=== PATIENT | male | born 1960 | race Caucasian/White ===

== ENCOUNTER 2022-01-17 02:23 | Outpatient (CLI) | payer OTHER, SELFPAY | END 2022-01-17 02:24 | disposition home or self-care (01) | PROVIDERS: PCP Family Medicine; Visit Provider Family Medicine | DX: R41.82 Altered mental status, unspecified (principal) ==

== ENCOUNTER 2022-01-17 03:26 | Outpatient (CLI) | payer OTHER, SELFPAY | END 2022-01-17 03:27 | disposition home or self-care (01) | LOC: AMB 01-31 02:59 | PROVIDERS: PCP Family Medicine; Visit Provider Family Medicine | DX: R41.82 Altered mental status, unspecified (principal); R47.81 Slurred speech; R53.1 Weakness | CPT/HCPCS: A0425; A0427 ==

== ENCOUNTER 2022-01-17 03:40 | Observation (INO) | payer OTHER, SELFPAY ==
[2022-01-17] VITALS (11 sets, daily range): BP systolic 130–148; BP diastolic 37–92; PULSE 53–68; RESP 16–20; TEMP 36.4–36.8; O2SAT 94–98
--- NOTE | 2022-01-17 03:47 | CRLHL7_ITS ---
For Patients: As a result of the Century Cures Act, medical imaging exams and procedure reports are released immediately into your electronic medical record. You may view this report before your referring provider. If you have questions, please contact your health care provider. INDICATION: Left sided weakness TECHNIQUE: CT Head without i.v. contrast. Coronal and sagittal reformats were obtained. COMPARISON: None FINDINGS: CSF space: The ventricles are normal for age. Brain: No evidence of mass, acute infarction or hemorrhage is seen. No mass-effect or midline shift is seen. The brain parenchyma is otherwise normal in appearance with preservation of the morillo-white matter junction. Calvarium: Opacification of the ethmoid air cells are noted bilaterally. A retention cyst or polyp is partially visualized in the left maxillary sinus. The mastoid air cells are clear. The visualized orbits are grossly unremarkable. The calvarium is unremarkable in appearance with no fractures identified. IMPRESSION: 1. No evidence of acute infarction, intracranial hemorrhage, or mass-effect seen. Dictated by Navid Gustafson MD @ 01/17/2022 4:02:56 AM Please note that all CT scans at this facility use dose modulation, iterative reconstruction, and/or weight-based dosing when appropriate to reduce radiation dose to as low as reasonably achievable. Dictated by: Navid Gustafson MD @ 01/17/2022 04:03:02 (Electronically Signed)
--- NOTE | 2022-01-17 03:47 | CT_ITS ---
Final Report Patient: MAXI CRAIG Facility:?[facility] Patient ID:?[id number] Site Patient ID:?[id number]. Site :?[id number] Study:?CT Head Angio -01/17/2022 3:57:04 AM Ordering Physician:Arturo Chung Final Report: INDICATION: Acute stroke, left-sided weakness. TECHNIQUE: CTA head with contrast bolus tracking and 3D MIP reconstruction. FINDINGS: Atherosclerotic plaque is present around the carotid siphons with mild to moderate stenosis of the supraclinoid left internal carotid artery. There is no large vessel occlusion. The right vertebral artery predominantly supplies the posterior-inferior cerebellar artery. The left vertebral artery is dominant. No aneurysm is identified. IMPRESSION: No emergent large vessel occlusion. Please note that all CT scans at this facility use dose modulation, iterative reconstruction, and/or weight-based dosing when appropriate to reduce radiation dose to as low as reasonably achievable. Dictated by Prateek Damian MD @ 01/17/2022 9:30:14 AM (Electronic Signature)
--- NOTE | 2022-01-17 03:47 | CT_ITS ---
Final Report Patient: MAXI CRAIG Facility:?[facility] Patient ID:?[id number] Site Patient ID:?[id number]. Site :?[id number] Study:?CT ST Neck Angio -01/17/2022 3:58:28 AM Ordering Physician:?Clary Chung Final Report: INDICATION: Acute stroke, left-sided weakness. TECHNIQUE: CTA neck with contrast bolus tracking and 3D MIP reconstruction. FINDINGS: There is minor carotid atherosclerotic disease. There is no significant carotid or vertebral artery stenosis or dissection. The soft tissues of the neck are within normal limits. The cervical spine is in normal alignment. IMPRESSION: No significant carotid or vertebral artery stenosis or dissection. Please note that all CT scans at this facility use dose modulation, iterative reconstruction, and/or weight-based dosing when appropriate to reduce radiation dose to as low as reasonably achievable. Dictated by Prateek Damian MD @ 01/17/2022 9:36:15 AM (Electronic Signature)
--- NOTE | 2022-01-17 03:49 | CRLHL7_ITS ---
For Patients: As a result of the Cures Act, medical imaging exams and procedure reports are released immediately into your electronic medical record. You may view this report before your referring provider. If you have questions, please contact your health care provider. INDICATION: Left sided weakness TECHNIQUE: Chest radiograph 1 view COMPARISON: None FINDINGS: Mediastinum: The mediastinum is normal in appearance. The cardiac silhouette is mildly enlarged but may be accentuated by the portable technique. Lung: Both lungs are unremarkable in appearance. The right lateral costophrenic sulcus is excluded. No sign of pleural effusion seen. No pneumothorax is identified. Bone and Soft tissue: Unremarkable for age. IMPRESSION: 1. The cardiac silhouette is mildly enlarged but may be accentuated by the portable technique. Dictated by Navid Gustafson MD @ 01/17/2022 4:16:55 AM Dictated by: Navid Gustafson MD @ 01/17/2022 04:17:02 (Electronically Signed)
[2022-01-17] MEDS: 0.9 % SODIUM CHLORIDE 1000 ml 1,000 ML IV (04:05)
--- NOTE | 2022-01-17 04:11 | ED.NEUROSD ---
HPI - Neuro Symptoms/Deficit General Date Seen: 01/17/22 Chief Complaint: Weakness Stated Complaint: Stroke Time Seen by Provider: 01/17/22 03:47 Source: patient, EMS, RN notes reviewed and old records reviewed Mode of arrival: EMS Limitations: no limitations History of Present Illness HPI Narrative: Ha is a 61-year-old male with a history of daily alcohol use that he describes as social who is brought to the emergency room by EMS for evaluation regarding left-sided weakness and numbness that has now resolved. EMS was called to Ha home at 0130 when he had had the on set of weakness and numbness in his left arm and leg. He states it started in the leg and then moved to the arm and was associated with difficulty with speaking. By the time EMS arrived he had had resolution of his symptoms and declined to go to the hospital. At 0300 hours this occurred again. This time it lasted for 5 minutes. EMS brought patient to the hospital. Patient notes that this is not happened to him in the past. He denies any recent trauma. He does state that they have had guests all day and have had 5-6 cocktails. He denies a history of withdrawal. Patient notes again weakness started in his left lower extremity and seemed to be rather sudden. This then involved his left upper extremity the left side of his face and he noticed that he felt like he was talking when he has Novocain in his mouth. He denied a headache, chest pain, shortness of breath. He has not had history of atrial fibrillation or irregular heartbeat in the past. He denies any drug use. He is a smoker. Time: 03:00 Last Observed Normal: 03:00 Timing confirmed by: other (Friend) Location: speech, left face, left arm and left leg History of same: No Severity: moderate Quality: weak and numb Relieving factors: time Exacerbating factors: none Context: sudden onset On Anticoagulants: No Associated symptoms: denies other symptoms Treatments Prior to Arrival: none Related Data Home Medications Medication Instructions Recorded Confirmed No Known Home Medications 01/17/22 01/17/22 Allergies Allergy/AdvReac Type Severity Reaction Status Date / Time No Known Drug Allergies Allergy Verified 01/17/22 04:25 Review of Systems Status of ROS: Reports: 10 or more systems reviewed and unremarkable except as noted in History and below Const: Denies: fever, chills or fatigue Eyes: Denies: change in vision or blurry vision ENMT: Denies: throat pain, neck pain, difficulty swallowing or vertigo Cardio: Denies: chest pain, palpitations, edema, swelling of feet/ankles or shortness of breath with exertion Resp: Denies: shortness of breath or cough GI: Denies: abdominal pain, nausea, vomiting or difficulty swallowing : Denies: painful urination Musculo: Denies: back pain or neck pain Integ/Breast: Denies: rash Neuro: Reports: numbness in extremities, weakness in extremities and slurred speech; Denies: headache, dizziness or vertigo Psych: Denies: anxiety Endo: Denies: fatigue PFSH PFS Social History Smoking Status: Current every day smoker What tobacco products do you use: cigarettes Smoking packs per day: 1 Smoking cigarettes per day: 20.0 Second hand tobacco smoke exposure: No How often do you have a drink containing alcohol: 4 or more times a week How many standard drinks containing alcohol do you have on a typical day: 3 or 4 How often do you have six or more drinks on one occasion: Monthly AUDIT-C Alcohol total score: 7 Non-prescribed substance use: denies use service: No Exam Const: Vital Signs, click to edit/add: Vital Signs - 24 hr 01/17/22 04:25 01/17/22 04:57 Temperature 97.5 F L Pulse Rate [Left P ulse Oximeter] 67 68 Respiratory Rate 16 16 Blood Pressure [Le ft Upper Arm] 131/78 148/37 H Pulse Oximetry 95 96 Documenting provider has reviewed patient's vital signs: yes Common normals: no apparent distress, average body habitus, oriented x3 and no limitations General appearance: cooperative and comfortable HENMT: Common normals: normocephalic, head/scalp atraumatic, external ears normal and external nose normal Head and scalp: normocephalic and atraumatic Face and sinus: normal facial exam and face symmetric Nose: external nose normal External ear: external ears normal Mouth: oral and palatal mucosa normal and tongue normal Throat: posterior oropharynx normal Eye: Common normals: PERRL and EOMs intact bilaterally General eye: normal appearance of both eyes Pupil: PERRL Neck & C-Spine: Common normals: full ROM, no lymphadenopathy and supple Resp: Common normals: normal respiratory effort and clear to auscultation bilaterally Effort & inspection: able to speak in complete sentences and symmetric chest movement Auscultation: clear to auscultation bilaterally Cardio: Common normals: regular rate and regular rhythm Rate: regular rate Rhythm: regular rhythm GI: Common normals: soft to palpation and non-tender Inspection: abdominal distension Palpation: soft : Common normals: no CVA tenderness Bladder/kidney exam: no CVA tenderness Back & Pelvis: Common normals: no CVA tenderness Extremity: Common normals: normal to inspection and full ROM Neuro: Common normals: oriented x3, CN's II-XII intact bilaterally, moves all extremities, no focal motor deficits and no sensory deficits noted Coordination/balance: [id number] test normal and Romberg test negative Speech: speech normal Gait (neuro): unable to assess gait Motor exam: strength 5/5 throughout and no pronator drift Coordination: [id number] test normal Pupil exam: Normal pupillary reactivity/response: bilateral Psych: Common normals: mental status grossly normal, thought process normal and speech normal Activity/motor behavior: appropriate eye contact Speech: normal speech Thought process: normal thought process Attention/concentration: attention grossly intact Memory/cognition: memory grossly intact Insight: insight good Judgement: judgment good Skin: Common normals: no rashes or lesions noted General skin exam: no rashes or lesions noted Course Course Hospital Course: Patient was met in the back all way upon EMS arrival for examination. Patient underwent CT CTA although his symptoms had resolved at that point. Will also obtain laboratory values to include a CBC, basic panel, LFTs, urinalysis, EtOH, EKG, troponin. Reevaluation(s) Reevaluation #1: Patient continues to be asymptomatic. He tells me he did take an aspirin at home after the initial experience of left-sided weakness. He had no loss of bowel or bladder control during that time as well as no difficulty breathing or chest pain or headache. Currently awaiting CTA results. Will contact Neurology for consultation. Reevaluation #2: After negative head CT, 2- troponins and normal EKGs we did have patient get up walk around the department and he had no recurrence of symptoms. Consultations Consultation #1: Dr. Walker, [place] neurologist, is consulted. Vital Signs Vital signs: Initial Vital Signs Temperature 97.5 F L 01/17/22 04:25 Temperature Source Temporal Artery Scan 01/17/22 04:25 Pulse Rate 67 01/17/22 04:25 Pulse Rhythm 01/17/22 04:25 Respiratory Rate 16 01/17/22 04:25 Blood Pressure 131/78 01/17/22 04:25 Blood Pressure Mean 95 01/17/22 04:25 Pulse Oximetry 95 01/17/22 04:25 Oxygen Delivery Method 01/17/22 04:25 Vital Signs Temperature 97.5 F L 01/17/22 04:25 Pulse Rate 67 01/17/22 04:25 Respiratory Rate 16 01/17/22 04:25 Blood Pressure 131/78 01/17/22 04:25 Pulse Oximetry 95 01/17/22 04:25 Temperature 97.5 F L 01/17/22 04:25 Pulse Rate 68 01/17/22 04:57 Respiratory Rate 16 01/17/22 04:57 Blood Pressure 148/37 H 01/17/22 04:57 Pulse Oximetry 96 01/17/22 04:57 MDM - Neuro Symptoms/Deficit MDM Narrative Medical decision making narrative: 1. Neurological deficit-resolved. Patient has normal exam, negative head CT and CTA. Consult with Dr. Christiano walker who suggests MRI without contrast. Dr. Walker is to be contacted after MRI results returned for further consultation. Patient took his own aspirin 325 mg p.o. at home. 2. Daily alcohol use-alcohol tonight is 0.07. LFTs reassuring. 3. Disposition-this patient will be signed out to my partner Dr. Vo for MRI results as well as consult with Dr. Walker once again. Medical Records Attestation: I reviewed the patient's medical records. Lab Data Attestation: I reviewed the patient's lab results. Labs: Lab Results 01/17/22 01/17/22 01/17/22 Range/Units 03:49 04:05 04:05 WBC 5.93 (4.50-11.00) K/uL RBC 4.77 (4.30-5.90) m/uL Hgb 15.8 (13.5-17.5) gm/dL Hct 45.4 (37.0-53.0) % MCV 95 (80-100) fL MCH 33 (26-34) pg MCHC 35 (32-36) gm/dL RDW Coeff of Brittany 12.4 (11.5-15.5) % Plt Count 227 (140-440) K/uL Neut % (Auto) 38.8 L (42.0-72.0) % Lymph % (Auto) 43.5 (20-44) % [place] % (Auto) 8.4 (0.0-11.0) % Eos % (Auto) 7.6 H (0.0-7.0) % Baso % (Auto) 1.5 (0.0-3.0) % Neut # (Auto) 2.30 (1.7-7.0) K/uL Lymph # (Auto) 2.58 (0.90-2.90) K/uL [place] # (Auto) 0.50 (0.00-0.90) K/UL Eos # (Auto) 0.50 (0.00-0.50) K/uL Baso # (Auto) 0.09 (0.00-0.30) K/uL Abs Immat Gran (auto) 0.01 (0.00-0.30) K/uL Sodium 134 L (135-149) mmol/L Potassium 3.5 L (3.6-5.1) mmol/L Chloride 104 (96-114) mmol/L Carbon Dioxide 23 (20-32) mmol/L BUN 11 (7-30) mg/dL Creatinine 0.9 (0.5-1.5) mg/dL Estimated GFR 97 ml/min Glucose 134 H (60-115) mg/dL Calcium 8.5 (8.4-10.6) mg/dL Total Bilirubin 0.3 (0.1-1.5) mg/dL AST 24 (12-35) U/L ALT 25 (4-50) U/L Alkaline Phosphatase 70 (40-150) U/L C-Reactive Protein < 0.5 L (0.5-1.0) mg/dL Total Protein 6.2 (6.0-8.3) g/dL Albumin 3.8 (3.3-5.0) g/dL Urine Color (Yellow) Urine Appearance (Clear) Urine pH (5.0-8.5) Ur Specific [place] (1.000-1.030) Urine Protein (Negative) Urine Glucose (UA) (Negative) Urine Ketones (Negative) Urine Blood (Negative) Urine Nitrite (Negative) Urine Bilirubin (Negative) Urine Urobilinogen (0.2-1.0) Ur Leukocyte Esterase (Negative) Urine Opiates Screen (Negative) Ur Oxycodone Screen (Negative) Urine Methadone Screen (Negative) Ur Propoxyphene Screen (Negative) Ur Barbiturates Screen (Negative) U Tricyclic Antidepress (Negative) Ur Phencyclidine Scrn (Negative) Ur Amphetamines Screen (Negative) U Methamphetamines Scrn (Negative) U Benzodiazepines Scrn (Negative) Urine Cocaine Screen (Negative) U Marijuana (THC) Screen (Negative) Ur Drug Screen Comment Ethyl Alcohol 0.07 H (0.01-0.03) % SARS-CoV-2 (PCR) (Negative) Influenza Type A (PCR) (Negative) Influenza Type B (PCR) (Negative) POC Troponin I 0.01 (0.01-0.04) ng/ml 01/17/22 01/17/22 01/17/22 Range/Units 04:05 04:50 04:50 WBC (4.50-11.00) K/uL RBC (4.30-5.90) m/uL Hgb (13.5-17.5) gm/dL Hct (37.0-53.0) % MCV (80-100) fL MCH (26-34) pg MCHC (32-36) gm/dL RDW Coeff of Brittany (11.5-15.5) % Plt Count (140-440) K/uL Neut % (Auto) (42.0-72.0) % Lymph % (Auto) (20-44) % [place] % (Auto) (0.0-11.0) % Eos % (Auto) (0.0-7.0) % Baso % (Auto) (0.0-3.0) % Neut # (Auto) (1.7-7.0) K/uL Lymph # (Auto) (0.90-2.90) K/uL [place] # (Auto) (0.00-0.90) K/UL Eos # (Auto) (0.00-0.50) K/uL Baso # (Auto) (0.00-0.30) K/uL Abs Immat Gran (auto) (0.00-0.30) K/uL Sodium (135-149) mmol/L Potassium (3.6-5.1) mmol/L Chloride (96-114) mmol/L Carbon Dioxide (20-32) mmol/L BUN (7-30) mg/dL Creatinine (0.5-1.5) mg/dL Estimated GFR ml/min Glucose (60-115) mg/dL Calcium (8.4-10.6) mg/dL Total Bilirubin (0.1-1.5) mg/dL AST (12-35) U/L ALT (4-50) U/L Alkaline Phosphatase (40-150) U/L C-Reactive Protein (0.5-1.0) mg/dL Total Protein (6.0-8.3) g/dL Albumin (3.3-5.0) g/dL Urine Color Yellow (Yellow) Urine Appearance Clear (Clear) Urine pH 5.5 (5.0-8.5) Ur Specific [place] <= 1.005 (1.000-1.030) Urine Protein Negative (Negative) Urine Glucose (UA) Negative (Negative) Urine Ketones Negative (Negative) Urine Blood Negative (Negative) Urine Nitrite Negative (Negative) Urine Bilirubin Negative (Negative) Urine Urobilinogen 0.2 (0.2-1.0) Ur Leukocyte Esterase Negative (Negative) Urine Opiates Screen Negative (Negative) Ur Oxycodone Screen Negative (Negative) Urine Methadone Screen Negative (Negative) Ur Propoxyphene Screen Negative (Negative) Ur Barbiturates Screen Negative (Negative) U Tricyclic Antidepress Negative (Negative) Ur Phencyclidine Scrn Negative (Negative) Ur Amphetamines Screen Negative (Negative) U Methamphetamines Scrn Negative (Negative) U Benzodiazepines Scrn Negative (Negative) Urine Cocaine Screen Negative (Negative) U Marijuana (THC) Screen Negative (Negative) Ur Drug Screen Comment See Note Ethyl Alcohol (0.01-0.03) % SARS-CoV-2 (PCR) Negative SARS-CoV-2 (Negative) Influenza Type A (PCR) Negative PCR FLU A (Negative) Influenza Type B (PCR) Negative PCR FLU B (Negative) POC Troponin I (0.01-0.04) ng/ml 01/17/22 Range/Units 06:00 WBC (4.50-11.00) K/uL RBC (4.30-5.90) m/uL Hgb (13.5-17.5) gm/dL Hct (37.0-53.0) % MCV (80-100) fL MCH (26-34) pg MCHC (32-36) gm/dL RDW Coeff of Brittany (11.5-15.5) % Plt Count (140-440) K/uL Neut % (Auto) (42.0-72.0) % Lymph % (Auto) (20-44) % [place] % (Auto) (0.0-11.0) % Eos % (Auto) (0.0-7.0) % Baso % (Auto) (0.0-3.0) % Neut # (Auto) (1.7-7.0) K/uL Lymph # (Auto) (0.90-2.90) K/uL [place] # (Auto) (0.00-0.90) K/UL Eos # (Auto) (0.00-0.50) K/uL Baso # (Auto) (0.00-0.30) K/uL Abs Immat Gran (auto) (0.00-0.30) K/uL Sodium (135-149) mmol/L Potassium (3.6-5.1) mmol/L Chloride (96-114) mmol/L Carbon Dioxide (20-32) mmol/L BUN (7-30) mg/dL Creatinine (0.5-1.5) mg/dL Estimated GFR ml/min Glucose (60-115) mg/dL Calcium (8.4-10.6) mg/dL Total Bilirubin (0.1-1.5) mg/dL AST (12-35) U/L ALT (4-50) U/L Alkaline Phosphatase (40-150) U/L C-Reactive Protein (0.5-1.0) mg/dL Total Protein (6.0-8.3) g/dL Albumin (3.3-5.0) g/dL Urine Color (Yellow) Urine Appearance (Clear) Urine pH (5.0-8.5) Ur Specific [place] (1.000-1.030) Urine Protein (Negative) Urine Glucose (UA) (Negative) Urine Ketones (Negative) Urine Blood (Negative) Urine Nitrite (Negative) Urine Bilirubin (Negative) Urine Urobilinogen (0.2-1.0) Ur Leukocyte Esterase (Negative) Urine Opiates Screen (Negative) Ur Oxycodone Screen (Negative) Urine Methadone Screen (Negative) Ur Propoxyphene Screen (Negative) Ur Barbiturates Screen (Negative) U Tricyclic Antidepress (Negative) Ur Phencyclidine Scrn (Negative) Ur Amphetamines Screen (Negative) U Methamphetamines Scrn (Negative) U Benzodiazepines Scrn (Negative) Urine Cocaine Screen (Negative) U Marijuana (THC) Screen (Negative) Ur Drug Screen Comment Ethyl Alcohol (0.01-0.03) % SARS-CoV-2 (PCR) (Negative) Influenza Type A (PCR) (Negative) Influenza Type B (PCR) (Negative) POC Troponin I 0.01 (0.01-0.04) ng/ml Imaging Data CT scan - head: Attestation: I have reviewed the pertinent imaging results. My impression: No acute findings Radiologist's impression: No acute findings head and neck angio: Attestation: I have reviewed the pertinent imaging results. Radiologist's impression: The [id number] is unremarkable with no significant stenosis, occlusion, or aneurysm identified. A fenestration is noted near the origin of the right P1 segment. The neck vessels showed no evidence dissection, significant stenosis. A left dominant vertebral artery is present. Chest x-ray: Attestation: I have reviewed the pertinent imaging results. My impression: No acute infiltrate Radiologist's impression: No acute findings ECG Data Attestation: I personally reviewed and interpreted this ECG as follows: ECG interpretation date: 01/17/22 ECG interpretation time: 04:30 Interpretation: EKG by my read shows sinus rhythm at a rate of 68. No acute ST or T-wave changes are noted. Discharge Plan Discharge Prescriptions: No Action No Known Home Medications 0RF Follow Up/Referrals: Abdi Finley MD [Primary Care Provider] -
[2022-01-17 04:23] LABS: Troponin, Point-of-Care* 0.01 ng/ml (0.01-0.04)
[2022-01-17 04:26] LABS: Basophils Absolute Auto 0.09 K/uL (0.00-0.30); Basophils Percent Auto 1.5 % (0.0-3.0); Eosinophils Percent Auto 7.6 % (0.0-7.0); Hematocrit 45.4 % (37.0-53.0); Hemoglobin* 15.8 gm/dL (13.5-17.5); Immature Granulocytes Abs Auto 0.01 K/uL (0.00-0.30); Lymphocytes Absolute Auto 2.58 K/uL (0.90-2.90); Lymphocytes Percent Auto 43.5 % (20-44); Mean Corpuscular HGB Conc 35 gm/dL (32-36); Mean Corpuscular Hemoglobin 33 pg (26-34); Mean Corpuscular Volume 95 fL (80-100); Monocytes Percent Auto 8.4 % (0.0-11.0); Neutrophils Percent Auto 38.8 % (42.0-72.0); Platelet Count* 227 K/uL (140-440); RDW Coefficient of Variation % 12.4 % (11.5-15.5); Red Blood Count 4.77 m/uL (4.30-5.90); White Blood Count* 5.93 K/uL (4.50-11.00)
[2022-01-17 04:31] LABS: Slide Review Reflex No
[2022-01-17 04:39] LABS: Albumin* 3.8 g/dL (3.3-5.0); Chloride* 104 mmol/L (96-114)
[2022-01-17 04:40] LABS: Potassium* 3.5 mmol/L (3.6-5.1); Sodium* 134 mmol/L (135-149)
[2022-01-17 04:42] LABS: Alanine Aminotransferase* 25 U/L (4-50); Alkaline Phosphatase* 70 U/L (40-150); Aspartate Amino Transferase* 24 U/L (12-35); Bilirubin Total* 0.3 mg/dL (0.1-1.5); Carbon Dioxide* 23 mmol/L (20-32); Creatinine* 0.9 mg/dL (0.5-1.5); Estimated Glomerular Filt Rate 97 ml/min; Total Protein* 6.2 g/dL (6.0-8.3)
[2022-01-17 04:43] LABS: Blood Urea Nitrogen* 11 mg/dL (7-30); Calcium* 8.5 mg/dL (8.4-10.6); Ethanol* 0.07 % (0.01-0.03); Glucose* 134 mg/dL (60-115)
[2022-01-17 04:47] LABS: C Reactive Protein* < 0.5 mg/dL (0.5-1.0)
[2022-01-17 05:02] LABS: Appearance Urine Clear (Clear); Bilirubin Urine Negative (Negative); Blood Urine Negative (Negative); Color Urine Yellow (Yellow); Glucose Urine Negative (Negative); Ketones Urine Negative (Negative); Leukocyte Esterase Urine Negative (Negative); Nitrite Urine Negative (Negative); Protein Urine Negative (Negative); Specific Gravity Urine <= 1.005 (1.000-1.030); Urobilinogen Urine 0.2 (0.2-1.0); pH Urine 5.5 (5.0-8.5)
[2022-01-17 05:03] LABS: PCR FLU A Negative PCR FLU A (Negative); PCR FLU B Negative PCR FLU B (Negative)
[2022-01-17 05:07] LABS: SARS PCR* Negative SARS-CoV-2 (Negative)
[2022-01-17 05:10] LABS: Amphetamine Screen Urine Negative (Negative); Barbiturate Screen Urine Negative (Negative); Benzodiazepines Screen Urine Negative (Negative); Cannabinoid Screen Urine Negative (Negative); Cocaine Screen Urine Negative (Negative); Methadone Screen Urine Negative (Negative); Methamphetamines Screen Urine Negative (Negative); Opiate Screen Urine Negative (Negative); Oxycodone Screen Urine Negative (Negative); Phencyclidine Screen Urine Negative (Negative); Tricyclic Antidepressant Urine Negative (Negative)
[2022-01-17 06:14] LABS: Troponin, Point-of-Care* 0.01 ng/ml (0.01-0.04)
--- NOTE | 2022-01-17 06:23 | ED.NURSE ---
pt ambulated around ED, no complaints or reports of CP, SOB, numbness, pt with steady gait.
--- NOTE | 2022-01-17 06:55 | CRLHL7_ITS ---
For Patients: As a result of the Century Cures Act, medical imaging exams and procedure reports are released immediately into your electronic medical record. You may view this report before your referring provider. If you have questions, please contact your health care provider. INDICATION: Left-sided weakness. Speech difficulty. TECHNIQUE: Multiplanar multisequence noncontrast MR images acquired through the brain. COMPARISON: CT brain 01/17/2022. FINDINGS: Prominence of ventricles and sulci compatible with mild diffuse cerebral volume loss. No mass effect or midline shift. No parenchymal signal abnormalities. No diffusion restriction to suggest acute infarction. No intracranial hemorrhage or pathologic extra-axial fluid collection. The major arterial flow voids of the skullbase are preserved. The globes are symmetric. Small left maxillary sinus retention cyst. Mild to moderate paranasal sinus mucosal thickening. The mastoid air cells are clear. IMPRESSION: 1. No acute infarction, mass effect, or intracranial hemorrhage. 2. Mild diffuse cerebral volume loss. Dictated by Donal Zuniga MD @ 01/17/2022 9:22:29 AM (Electronically Signed)
--- NOTE | 2022-01-17 07:41 | PC.NURSE ---
pt sleeping, vss, at bedside, given MRI form to complete
--- NOTE | 2022-01-17 08:27 | PC.NURSE ---
pt to MRI
--- NOTE | 2022-01-17 09:06 | PC.NURSE ---
Addendum entered by Iman Gardner RN 01/17/22 09:11: correction: pt back from MRI Original Note: pt back from CT
--- NOTE | 2022-01-17 09:44 | PC.NURSE ---
pt had another episode of left sided numbness, states, I had my water in my hand and it just dropped to the bed, pt symptoms now completely resolved, Dr Vo to room
--- NOTE | 2022-01-17 10:39 | W.PC.EDHO ---
Primary Language: Preferred Language: Orientation Status: [x] Alert & Oriented [] Slight Confusion [] Known Dx Dementia Transfers By: [x] Assist of 1 [] Assist of 2 [] Lift Active Medications Discontinued Medications Generic Name Dose Route Start Last Admin Trade Name Freq PRN Reason Stop Dose Admin Sodium Chloride 1,000 mls @ 1,000 mls/hr 01/17/22 03:48 01/17/22 10:27 0.9 % Sodium Chloride 1000 Ml IV 01/17/22 04:47 Infused .Q1H REEMA Infusion Description of Symptoms ED Triage Present Problem 0130 pt began to have left sided numbness, arm. Description Numbness resolved, returned around 0300. Pt called 911 for help and was transported to ED. PT taken directly to CT, met pt in CT room ED Triage Date of Onset of 01/17/22 Symptoms [place] Coma Scale Roberto coma scale total score 15 Oxygen Administration Pulse Oximetry 96 Pulse Oximetry 95 Oxygen Delivery Method Room Air Oxygen Delivery Method Room Air Cardiac Monitoring EKG Method 12 Lead EKG Method 12 Lead EKG Method 12 Lead
[2022-01-17] MEDS: ASPIRIN 81 MG TAB.CHEW 324 MG PO (11:24)
--- NOTE | 2022-01-17 11:24 | PC.NURSE ---
report given to Rupinder Will on Med Surg, pt to room 256, tele on, ASA given, pt daughter and aware
--- NOTE | 2022-01-17 12:56 | PM.IMHP1 ---
Hospitalist- H&P: HPI History of Present Illness Date Seen: 01/17/22 Chief complaint: Stroke Narrative: ADMISSION HISTORY AND PHYSICAL - HOSPITALIST Chief Complaint: New episodes of left-sided dysarthria, upper and lower extremity weakness HPI: This is a 61-year-old white male with a history of DWAIN, obesity, tobacco and alcohol dependence who presents after a sensation/experience of acute onset of left arm and leg weakness, dysarthria. He states he was drinking with friends throughout the day yesterday and had just eaten a late dinner and noticed that his drink in his left hand was quite heavy and he needed to set it down because he thought he would spill. He felt he could control his fingers and hand like normal. He felt his left leg would not lift off the ground felt like he would fall. He felt he had Novocain in his lip and tongue and his speech was garbled. He remembers everything. No blackout. No fall. No headache. No chest pain. No nausea vomiting. No abdominal pain. Resolved within a few minutes. He sat down and seemed fine for an hour or so. The same experience happened again and at this time he then proceeded to the ED. someone he was with thought he might be having a stroke. Stat workup for acute CVA was negative in the ED. he did have 1 more episode of this while being observed and treated in the ED. ultimately brain MRI, CTA, chest x-ray and echo have been done and are reassuring. Stroke neuro was consulted in the ED. seizure disorder was and is being considered. Hospital medicine team was then consulted for further observation and workup. PAST MEDICAL HISTORY: Tobacco - pack per day. since his 20's. max abstinence is several months. 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 No acute infarction, mass effect or ICH 2. Mild diffuse cerebral volume loss Portable chest The cardiac silhouette is mildly enlarged but may be accentuated by the portable technique. CTA IMPRESSION: No significant carotid or vertebral artery stenosis or dissection. echo this am Final Impressions: 1. Technically limited exam. 2. Normal LV size, mildly increased wall thickness, mildly reduced global systolic function with an estimated EF of 45 - 50%. 3. There is mild global left ventricular hypokinesis. 4. The aortic valve is trileaflet and calcified, no stenosis and no regurgitation. 5. The mitral valve is sclerotic, trace mitral regurgitation. 6. The ascending aorta is dilated with a maximal diameter of 4.2 cm. 7. The aortic sinus is dilated with a maximal diameter of 4.2 cm. REVIEW OF SYSTEMS: 12-point ROS completed with patient and negative unless otherwise stated in HPI or below. PHYSICAL EXAM: CODE STATUS: FULL CONSTITUTIONAL: Conversive, good historian. A/O. Knows setting and context. VITAL SIGNS: see record. HEENT: Normocephalic, atraumatic. PERRL, EOMI, conjunctivae pink, no scleral icterus. Ears and nose externally normal. Pharynx normal. NECK: No JVD. No carotid bruit, no thyromegaly, no adenopathy. CHEST: Clear to auscultation bilaterally HEART: S1 and S2 normal. No harsh murmurs. Edema MUSCULOSKELETAL: No gross joint deformity or swelling. NEURO: Cranial nerves intact. Grossly intact. No asymmetric findings. SKIN: No rashes, petechiae, concerning changes PSYCHIATRIC: Euthymic. ADMIT DVT: Lovenox GI: PO intake Time spent: 70 minutes examining patient, conferring with family and patient, care staff, developing care plan [facility] Medical History Daily consumption of alcohol DWAIN (obstructive sleep apnea) Tobacco consumption Surgical History (Updated 01/17/22 @ 13:47 by Iman Perez MD) Deviated septum Previous back surgery Quadriceps tendon rupture Social History Highest level of school completed/degree received: Bachelor's degree Smoking Status: Current every day smoker What tobacco products do you use: cigarettes Smoking packs per day: 1 Smoking cigarettes per day: 20.0 Second hand tobacco smoke exposure: No How often do you have a drink containing alcohol: 4 or more times a week How many standard drinks containing alcohol do you have on a typical day: 3 or 4 How often do you have six or more drinks on one occasion: Monthly AUDIT-C Alcohol total score: 7 Non-prescribed substance use: denies use service: No Meds Home Medications and Allergies Home Medications Medication Instructions Recorded Confirmed Type No Known Home Medications 01/17/22 01/17/22 History Allergies Allergy/AdvReac Type Severity Reaction Status Date / Time No Known Drug Allergies Allergy Verified 01/17/22 04:25 Exam Const: Vital Signs, click to edit/add: Vital Signs - 24 hr 01/17/22 04:25 01/17/22 04:57 01/17/22 11:41 Temperature 97.5 F L 97.9 F Pulse Rate [Left P ulse Oximeter] 67 68 Pulse Rate [Left R adial] 53 L Respiratory Rate 16 16 20 Blood Pressure [Le ft Arm] 143/92 H Blood Pressure [Le ft Upper Arm] 131/78 148/37 H Pulse Oximetry 95 96 98 Hospitalist - H&P: Result Labs Labs: Short CBC 01/17/22 Range/Units 04:05 WBC 5.93 (4.50-11.00) K/uL Hgb 15.8 (13.5-17.5) gm/dL Hct 45.4 (37.0-53.0) % Plt Count 227 (140-440) K/uL BMP 01/17/22 04:05 Sodium 134 L Potassium 3.5 L Chloride 104 Carbon Dioxide 23 BUN 11 Creatinine 0.9 Glucose 134 H Calcium 8.5 Liver Function 01/17/22 Range/Units 04:05 Total Bilirubin 0.3 (0.1-1.5) mg/dL AST 24 (12-35) U/L ALT 25 (4-50) U/L Alkaline Phosphatase 70 (40-150) U/L Albumin 3.8 (3.3-5.0) g/dL Urine 01/17/22 Range/Units 04:50 Urine Color Yellow (Yellow) Urine Appearance Clear (Clear) Urine pH 5.5 (5.0-8.5) Ur Specific [place] <= 1.005 (1.000-1.030) Urine Protein Negative (Negative) Urine Glucose (UA) Negative (Negative) Assessment and Plan Assessment and plan (1) TIA (transient ischemic attack): Status: Acute Assessment and Plan: -given full-dose aspirin, continue daily -imaging reviewed -sitter atypical seizure activity, stroke neuro recommended a dose of Keppra if these symptoms continue or worsen -outpatient EEG -24 hours of observation -echo reviewed -CT chest abdomen pelvis ordered for this afternoon (2) Tobacco consumption: Status: Acute Assessment and Plan: -offered nicotine replacement (3) Daily consumption of alcohol: Status: Acute Assessment and Plan: Will watch CIWA over the next 24 hours (4) DWAIN (obstructive sleep apnea): Status: Acute Assessment and Plan: Strongly recommended outpatient follow-up (5) Prostate asymmetry: Status: Acute Assessment and Plan: noted on admission CAP CT. outpatient workup is appropriate.
--- NOTE | 2022-01-17 13:26 | CRLHL7_ITS ---
For Patients: As a result of the 21st Century Cures Act, medical imaging exams and procedure reports are released immediately into your electronic medical record. You may view this report before your referring provider. If you have questions, please contact your health care provider. INDICATION: Clinical signs and symptoms venous embolic disease. COMPARISON: None of this area TECHNIQUE: CT examination of the chest, abdomen and pelvis was performed following the uneventful intravenous administration of 95 cc of Isovue 370. Thin section axial images were obtained from the thoracic inlet through the pubic symphysis. Oral contrast was not administered. Sagittal and coronal reformatted imaging was performed. The chest portion of the study was performed as a pulmonary arterial angiogram. Please note that all CT scans at this facility use dose modulation, iterative reconstruction, and/or weight-based dosing when appropriate to reduce radiation dose to as low as reasonably achievable. FINDINGS: CHEST: Heart size normal. No mediastinal or hilar adenopathy or mass. Atherosclerotic vascular calcifications. No pericardial effusion. Lungs and pleural spaces appear normal. PULMONARY ARTERY DISTRIBUTION: No pulmonary embolus LIVER/BILIARY SYSTEM:The liver is normal in size and configuration. There is no focal mass and there is no intra- or extra hepatic biliary ductal dilatation.Hepatic steatosis. Gallbladder appears normal ADRENALS: Normal KIDNEYS, URETERS and BLADDER:The kidneys appear normal. No visible mass, calculus or hydronephrosis. The ureters and bladder as visualized appear normal. SPLEEN:Normal appearance. PANCREAS: Appears normal. RETROPERITONEUM and MESENTERY: There is no mass, adenopathy or aortic aneurysm. Atherosclerotic vascular calcifications. GASTROINTESTINAL SYSTEM: There is no evidence of diverticulitis, colitis, mechanical obstruction, or appendicitis. The small bowel as visualized appears normal.Fecal retention. Diverticulosis. PELVIS: Unusual masslike projection of the anterior superior prostate measuring 3 centimeters in diameter. Follow-up evaluation of this by urology is advised. OSSEOUS STRUCTURES and ABDOMINAL WALL: There is an age-appropriate appearance of the osseous structures.No significant abdominal wall defect. OTHER: No free fluid or free air. IMPRESSION: 1. CHEST: No evidence of pulmonary embolus. Normal appearing lungs and pleural spaces. prostate measuring 3 centimeters in diameter. Follow-up evaluation of this is recommended at a clinically appropriate time. Other incidental nonacute appearing findings as discussed above Please note that all CT scans at this facility use dose modulation, iterative reconstruction, and/or weight-based dosing when appropriate to reduce radiation dose to as low as reasonably achievable. Dictated by Adolfo Urena MD @ 01/17/2022 3:16:18 PM (Electronically Signed)
[2022-01-17 14:26] LABS: Iron* 107 ug/dL (49-181)
[2022-01-17 14:29] LABS: Hemoglobin A1C* 5.48 % (0-5.6)
[2022-01-17 14:37] LABS: Percent Iron Saturation 32 % (20-50); Total Iron Binding Capacity 333 ug/dL (261-462)
--- NOTE | 2022-01-17 15:08 | PC.NURSE ---
Pt arrived via w/c to room 256 from ED with c/o weakness at 11:26 am. Pt settled by Rupinder Baker RN. Pt tolerated regular lunch. Echocardiogram completed at bedside. Eval by Dr. Perez. Pt slept for 1hour, then taken to [facility] for CT scan of chest and abdomen via w/c. Tele indicates sinus bradycardia. Pt noted to snore with sleeping, I have a deviated septum. Pt has smoked 1 PPD for 40 years, declined nicotine patch or nicotine inhaler. Dry non-productive cough noted with deep breathing. Report to oncoming shift.
[2022-01-17] MEDS: ENOXAPARIN 40 MG/0.4 ML INJ SUBCUT (20:25)
[2022-01-18 03:00] VITALS: BP 116/77; PULSE 69; RESP 18; TEMP 36.7; O2SAT 98
--- NOTE | 2022-01-18 06:05 | PC.NURSE ---
Alert and oriented. Moving all extremities fine; no weakness noted. Denies headache, and double and/or blurry vision. PERRLA. EOM intact. No new neuro changes noted. Vitals are stable.On tele monitoring; extreme Claudio noted at 39bpm. Up and walking independently. Will continue to monitor and assess
[2022-01-18 07:24] LABS: HCO3 VBG 29 mmol/L (21-28); PCO2 VBG 47 mmHG (40-50); PO2 VBG 64.8 mmHG (25-47)
[2022-01-18 07:28] VITALS: PULSE 66
[2022-01-18 07:39] LABS: Basophils Percent Auto 1.5 % (0.0-3.0); Eosinophils Percent Auto 8.8 % (0.0-7.0); Hematocrit 48.4 % (37.0-53.0); Hemoglobin* 16.8 gm/dL (13.5-17.5); Immature Granulocytes Abs Auto 0.02 K/uL (0.00-0.30); Lymphocytes Absolute Auto 2.74 K/uL (0.90-2.90); Lymphocytes Percent Auto 41.7 % (20-44); Mean Corpuscular HGB Conc 35 gm/dL (32-36); Mean Corpuscular Hemoglobin 34 pg (26-34); Mean Corpuscular Volume 96 fL (80-100); Monocytes Percent Auto 8.8 % (0.0-11.0); Neutrophils Percent Auto 38.9 % (42.0-72.0); Platelet Count* 214 K/uL (140-440); RDW Coefficient of Variation % 12.4 % (11.5-15.5); Red Blood Count 5.02 m/uL (4.30-5.90); White Blood Count* 6.57 K/uL (4.50-11.00)
[2022-01-18 07:49] LABS: Slide Review Reflex No
[2022-01-18 07:55] LABS: INR 0.97 (0.91-1.10); Prothrombin Time 13.3 Seconds
[2022-01-18 08:01] LABS: Chloride* 107 mmol/L (96-114); Potassium* 4.6 mmol/L (3.6-5.1); Sodium* 134 mmol/L (135-149)
[2022-01-18 08:03] LABS: Cholesterol* 209 mg/dL (90-199); Creatinine* 0.8 mg/dL (0.5-1.5); Estimated Glomerular Filt Rate 100 ml/min
[2022-01-18 08:04] LABS: Blood Urea Nitrogen* 16 mg/dL (7-30); Calcium* 8.6 mg/dL (8.4-10.6); Carbon Dioxide* 25 mmol/L (20-32); Glucose* 113 mg/dL (60-115); HDL Cholesterol* 45 mg/dL (>=40); LDL Cholesterol Calculated 82 mg/dL (<100)
[2022-01-18 08:06] LABS: Triglycerides* 411 mg/dL (40-149)
[2022-01-18 08:12] LABS: Troponin I* 0.02 ng/mL (0.01-0.04)
[2022-01-18 08:15] VITALS: BP 141/75; PULSE 59; RESP 18; TEMP 36.6; O2SAT 95
[2022-01-18] MEDS: ASPIRIN 81 MG TAB.CHEW 324 MG PO (08:16)
--- NOTE | 2022-01-19 16:23 | P.DS_ITS ---
DS: Providers Provider Time Seen by Provider: 10:00 Date Seen: 01/18/22 Date of admission: 01/17/22 10:48 Primary care physician: Abdi Finley MD Admitting Clinician: Iman Perez MD Attending Physician on discharge: Severiano Atkinson MD Date of Discharge: 01/18/22 DS: Diagnosis Discharge Diagnosis (1) Transient hemiplegia: Status: Acute Problem details: 3 brief, transient episodes on 01/17/2022 with left hemiparesis and dysarthria. Warrants neurology follow-up. (2) Daily consumption of alcohol: Status: Acute (3) DWAIN (obstructive sleep apnea): Status: Acute Problem details: Untreated. Warrants sleep specialist follow-up. (4) Tobacco consumption: Status: Acute (5) Prostate asymmetry: Status: Acute Problem details: Unusual masslike projection of the anterior superior prostate measuring 3 centimeters in diameter. Follow-up evaluation of this by urology is advised. DS: Summary Hospital Course Hospital Course: This is a 61-year-old white male with a history of DWAIN, obesity, tobacco and alcohol dependence who presents after a sensation/experience of acute onset of left arm and leg weakness, dysarthria.? He states he was drinking with friends throughout the day yesterday and had just eaten a late dinner and noticed that his drink in his left hand was quite heavy and he needed to set it down because he thought he would spill.? He felt he could control his fingers and hand like normal.? He felt his left leg would not lift off the ground felt like he would fall.? He felt he had Novocain in his lip and tongue and his speech was garbled.? He remembers everything.? No blackout.? No fall.? No headache.? No chest pain.? No nausea vomiting.? No abdominal pain.? Resolved within a few minutes.? He sat down and seemed fine for an hour or so.? The same experience dao ppened again and at this time he then proceeded to the ED. someone he was with thought he might be having a stroke.? Stat workup for acute CVA was negative in the ED. he did have 1 more episode of this while being observed and treated in the ED. ultimately brain MRI, CTA, chest x-ray and echo have been done and are reassuring.? Stroke neuro was consulted in the ED. seizure disorder was and is being considered.? Hospital medicine team was then consulted for further observation and workup. He had no further episodes while in hospital. In order to complete our inpatient workup we did perform a CT scan of the chest, abdomen, and pelvis. In so far as any additional information that might explain his presentation we did not make any additional findings. However this CT scan did demonstrate a mass in his prostate that will warrant outpatient urology referral in consultation. Status at Discharge Functional status at discharge: independent ambulation Overall status at discharge: patient is back to baseline Time Spent with Patient Time attestation: Total time spent providing and/or coordinating discharge services: Time spent: Greater than 30 minutes Exam Narrative: Exam Narrative: No focal motor neurologic deficits. Independent transfer, station, and gait. Lungs clear to auscultation. Heart tones with regular rhythm, normal S1-S2. Abdomen benign. Extremities without edema. Skin warm, dry, intact. Const: Documenting provider has reviewed patient's vital signs: yes DS: Data Imaging MRI - head: Radiologist's impression: 1. No acute infarction, mass effect, or intracranial hemorrhage. 2. Mild diffuse cerebral volume loss. CT scan - head: Radiologist's impression: CT of the head and CT angiogram: 1. No evidence of acute infarction, intracranial hemorrhage, or mass-effect seen. Discharge Plan Discharge Disposition: Home, Self-Care Date of Admission: 01/17/22 10:48 Attending Provider on Discharge: Severiano Atkinson Primary Care Provider: Abdi Finley Condition: Improved Anticipated Discharge Date/Time: 01/18/22 13:00 Discharge Medications: New aspirin [Children's Aspirin] 81 mg tablet,chewable 81 mg PO DAILY Qty: 100 2RF Discharge Orders: Discharge Order (Routine); Ordered 01/18/22 Ordered By: Severiano Atkinson Patient Education: Aspirin (By mouth), Transient Ischemic Attack (GEN), Sleep Apnea (GEN), New-Onset Seizure in Adults (GEN) Activity Restrictions/Additional Instructions: 1. See primary care physician in next week; 2. Consultation with neurologist in next 3-6 weeks, sooner if possible; 3. Consultation with urologist in next 4-8 weeks, sooner if possible; 4. Consultation with sleep specialist in 4-8 weeks, sooner if possible; 5. Avoid exposure to seizure threshold lowering chemicals (such as alcohol) or events (such as over heating, etc); 6. Recommend discontinuation of exposure to tobacco products; 7. Should the transient left sided weakness and dysarthria reoccur at home, please seek urgent care in a major medical facility that has neurology services, such as [facility]. Activity Level: No Restrictions Discharge Diet: Regular Follow Up Appointments: [facility] [Provider Group] - 01/27/22 8:25 am (01/27/22 is Primary Appointment with at [facility] 01/27 @ 8:25 am A Urologist specialist appointment is on 02/21/22 at 10:30am at [facility] an[facility] A Neurologist appointment needs referral have primary doctor arrange and also referral for sleep specialty. ) Abdi Finley MD [Primary Care Provider] - Forms: [employer] Info Instructions
== END 2022-01-18 13:28 | disposition home or self-care (01) ==
LOC: ED 07:51 → MEDSURG 10:50
PROVIDERS: Family Medicine; Admitting Provider Family Medicine; Emergency Provider Family Medicine; PCP Family Medicine; Visit Provider Family Medicine
DX: G45.9 Transient cerebral ischemic attack, unspecified (principal); R47.1 Dysarthria and anarthria; R47.81 Slurred speech; G81.94 Hemiplegia, unspecified affecting left nondominant side; F17.210 Nicotine dependence, cigarettes, uncomplicated; F10.20 Alcohol dependence, uncomplicated; N42.89 Other specified disorders of prostate; G47.33 Obstructive sleep apnea (adult) (pediatric); Z78.9 Other specified health status
CPT/HCPCS: 36415; 70450; 70496; 70498; 70551; 71045; 71260; 74177; 80048; 80053; 80061; 80306; 81003; 82077; 82728; 82803; 83036; 83540; 83550; 83735; 84443; 84484; 85025; 85610; 86140; 87502; 87635; 93005; 93306; 93320; 93325; 94761; 96360; 96361; 96372; 99284; 99285; G0378; A9270; G0379; J1650; J7030; Q9967